=== PATIENT | male | born 1980 | race African-American/Black ===

== ENCOUNTER 2020-01-28 10:23 | Outpatient (CLI) | payer OTHER ==
--- NOTE | 2020-01-28 11:20 | RAD ---
Chest 2 views HISTORY: Bronchitis. FINDINGS: No comparison. Cardiac silhouette and pulmonary vasculature are unremarkable. Slight inters titial prominence of the pulmonary interstitium more pronounced centrally and in the lower lobes. Mediastinum is midline. No lobar consolidation or pneumothorax. Minimal fluid in the major fissures. IMPRESSION: Mild central reticular interstitial prominence without significant pulmonary vascular con gestion. Clinical correlation regarding other signs and symptoms of an atypical/viral pneumonitis is required.
== END 2020-01-28 10:24 | disposition home or self-care (01) ==
LOC: BURRAD 10:23
PROVIDERS: ATTEND Nurse Practitioner
DX: J20.9 Acute bronchitis, unspecified (principal); J98.4 Other disorders of lung
CPT/HCPCS: 71046